=== PATIENT | male | born 1995 | race Caucasian/White ===

== ENCOUNTER 2017-03-12 01:25 | Emergency (ER) | payer OTHER ==
[~2017-03-12] VITALS: Ht 180.3 cm; Wt 84.5 kg
[~2017-03-12 01:25] MED LIST: IBUPROFEN800 MG PO
[2017-03-12 01:30] VITALS: BP 153/100
== END 2017-03-12 04:12 | disposition left against medical advice (07) ==
LOC: EME 01:25
PROC: 0HQ0XZZ Repair Scalp Skin, External Approach (ICD-10-PCS; principal; 2017-03-12)
DX: S01.01XA Laceration without foreign body of scalp, initial encounter (principal); S09.8XXA Other specified injuries of head, initial encounter; F10.99 Alcohol use, unspecified with unspecified alcohol-induced disorder; Y00.XXXA Assault by blunt object, initial encounter
CPT/HCPCS: 70450; 99281; 99282